=== PATIENT | female | born 1990 | race African-American/Black ===

== ENCOUNTER 2018-12-02 10:05 | Emergency (ER) | payer BC ==
[~2018-12-02] VITALS: Ht 180.3 cm; Wt 99.8 kg
[2018-12-02 10:05] VITALS: BP_SYST 121
[2018-12-02] MEDS ORDERED: ONDANSETRON HCL 4 MG/2 ML VIAL IVP ONE (10:30)
[2018-12-02] MEDS ORDERED: KETOROLAC TROMETHAMINE 30 MG VIAL IVP ONE (10:30)
[2018-12-02] MEDS ORDERED: NACL 0.9% 1,000 ML IV ONE (10:30)
[2018-12-02 10:55] LABS: BASOPHILS # (AUTO) 0.1 K/uL (0.0-0.2); BASOPHILS % (AUTO) 1.3 % (0.0-2.0); HEMATOCRIT 44.2 % (36-48); HEMOGLOBIN 14.6 g/dL (12.0-16.0); LYMPHOCYTES # (AUTO) 0.6 K/uL (1.0-5.5); LYMPHOCYTES % (AUTO) 5.4 % (20.5-51.5); MEAN CORPUSCULAR HEMOGLOBIN 31 pg (27-31); MEAN CORPUSCULAR HGB CONC 33 % (32-36); MEAN CORPUSCULAR VOLUME 94 fL (79.0-98.0); MONOCYTES # (AUTO) 0.2 K/uL (0.0-1.0); MONOCYTES % (AUTO) 1.8 % (1.7-9.3); NEUTROPHILS # (AUTO) 9.6 K/uL (1.8-7.7); PLATELET COUNT (AUTO) 316 K/uL (130-430); RED BLOOD CELL COUNT(AUTO) 4.72 MIL/uL (4.2-6.2); RED CELL DISTRIBUTION WIDTH 11.6 % (9.0-15.0); WHITE BLOOD COUNT (AUTO) 10.4 K/uL (4.8-10.8)
[2018-12-02 11:18] LABS: POTASSIUM 3.7 mmol/L (3.5-5.1)
[2018-12-02 11:19] LABS: CALCIUM 9.8 mg/dL (8.4-11.0)
[2018-12-02 11:20] LABS: ALBUMIN 4.1 g/dL (3.4-4.8); CREATININE 0.79 mg/dL (0.55-1.30); TOTAL BILIRUBIN 1.6 mg/dL (0.0-1.0)
[2018-12-02 11:33] LABS: NEUTROPHILS % (AUTO) 91.5 % (40.0-70.0)
[2018-12-02 12:25] VITALS: BP_SYST 127
== END 2018-12-02 12:24 | disposition home or self-care (01) ==
LOC: SED 10:05
DX: K52.9 Noninfective gastroenteritis and colitis, unspecified (principal); R53.1 Weakness; F17.200 Nicotine dependence, unspecified, uncomplicated
CPT/HCPCS: 36415; 80053; 81025; 83690; 85025; 96361; 96374; 96375; 99283; J1885; J2405; J7030